=== PATIENT | female | born 1975 | race Caucasian/White ===

== ENCOUNTER 2021-12-05 11:25 | Emergency (ER) | payer BC, MEDICAID ==
[2021-12-05 11:58] VITALS: BP 167/106; PULSE 71
== END 2021-12-05 12:22 | disposition home or self-care (01) ==
LOC: FB.ED 11:25
DX: K52.9 Noninfective gastroenteritis and colitis, unspecified (principal); Z90.710 Acquired absence of both cervix and uterus; Z79.899 Other long term (current) drug therapy
CPT/HCPCS: 87230; 99284